=== PATIENT | female | born 1980 | race Two or more races ===

== ENCOUNTER 2022-01-05 16:38 | Emergency (ER) | payer OTHER ==
[~2022-01-05] VITALS: Ht 152.4 cm; Wt 59.4 kg
[~2022-01-05 16:38] MED LIST: DURICEF PO; KETO10TA2 PO; SEPTRA DS TABLE1 TAB PO
== END 2022-01-05 22:12 | disposition home or self-care (01) ==
LOC: ER 16:38
DX: N39.0 Urinary tract infection, site not specified (principal); Z87.440 Personal history of urinary (tract) infections; Z91.09 Other allergy status, other than to drugs and biological substances